=== PATIENT | female | born 1940 | race Hispanic/Latino ===

== ENCOUNTER 2018-06-25 10:50 | Emergency (ER) | payer OTHER ==
--- OUTSIDE RECORDS SUMMARY | 2018-06-25 10:52 | XMS REPORT | Clinical Summary ---
:1940 Author Organization [facility] Address [address] [place] [address] Care Team Providers Name Role Phone Asked, No Pcp Primary Care Provider Unavailable Allergies No Known Allergies Medications Medication Sig Dispensed Refills Start Date End Date Status gabapentin Take 300 mg by 0 07/01/2017 Active (NEURONTIN) 300 mg mouth nightly. capsule acetaminophen Take 325 mg by 0 07/16/2017 Discontinued (TYLENOL) 325 MG mouth every 6 tablet (six) hours as needed for fever. acetaminophen-codei as needed. 0 07/01/2017 07/16/2017 Discontinued ne (TYLENOL WITH CODEINE #3) 300-30 mg per tablet acetaminophen-codei Take 1-2 30 tablet 0 07/13/2017 07/21/2017 ne (TYLENOL WITH tablets by CODEINE #3) 300-30 mouth every 6 mg per tablet (six) hours as needed for moderate pain for up to 8 days. Active Problems Problem Noted Date Osteoarthritis of right knee 03/13/2017 Encounters Date Type Specialty Care Team Description 08/15/2017 Office Visit Orthopedic Surgery Nikita Clemente Presence of right artificial knee joint (Primary Dx); HUEY Tineo Ankylosis of right knee Nigel Leavitt MD 07/16/2017 Surgery Orthopedic Surgery Nigel Leavitt RIGHT KNEE MD Cooper MANIPULATION UNDER ANESTHESIA 07/16/2017 Anesthesia Event Orthopedic Surgery Charito Tolentino APRN 07/16/2017 Hospital Encounter Orthopedic Surgery Nigel Leavitt MD 07/13/2017 Pre-Admit Testing Pre-Admission Nigel Leavitt Appointment Isaias Gamboa MD 07/13/2017 Orders Only Orthopedic Surgery Nikita Clemente PA-C 07/12/2017 Abstract Orthopedic Surgery Nigel Leavitt MD 07/12/2017 Orders Only Orthopedic Surgery Nikita Clemente Knee ankylosis, UHEY Tineo right (Primary Dx) 06/27/2017 Orders Only Orthopedic Surgery Mireya Wilson MA after 06/24/2017 Social History Tobacco Use Types Packs/Day Years Used Date Never Smoker Smokeless Tobacco: Never Used Alcohol Use Drinks/Week oz/Week Comments No Sex Assigned at Date Recorded Not on file Job Start Date Occupation Industry Not on file Not on file Not on file Travel History Travel Start Travel End No recent travel history available. Last Filed Vital Signs Vital Sign Reading Time Taken Blood Pressure 128/71 07/16/2017 10:12 AM [employer] Pulse 73 07/16/2017 10:12 AM [employer] Temperature 36.4 C (97.5 F) 07/16/2017 10:12 AM [employer] Respiratory Rate 16 07/16/2017 10:12 AM [employer] Oxygen Saturation 96% 07/16/2017 10:12 AM [employer] Inhaled Oxygen Concentration - - Weight 78.2 kg (172 lb 4.8 oz) 07/16/2017 6:58 AM [employer] Height 160 cm (5' 3") 07/16/2017 6:58 AM [employer] Body Mass Index 30.52 07/16/2017 6:58 AM [employer] Plan of Treatment Health Maintenance Due Date Last Done Comments SHINGRIX VACCINE (1 of 2) 12/30/1989 ZOSTER VACCINE 1999 PNEUMOCOCCAL POLYSACCHARIDE VACCINE AGE 65 AND OVER 12/30/2004 PNEUMOCOCCAL-13 12/30/2004 INFLUENZA VACCINE 03/06/2018 Implants Implanted Type Area Steel Rigger Device Shelf Model / Identifier Expiration Serial / Lot Date Jacob Ant Stblzd [facility] 10x71 - [id number] IMPLANT Right: [employer] [id number] / Implanted: Qty: 1 on 03/13/2017 by Nigel Leavitt MD DEVICES Knee / [id number] Pura Lyons Ilok Fem-Rt 62.5 - [id number] [id number] IMPLANT Right: [employer] 12/21/2026 [id number] / Implanted: Qty: 1 on 03/13/2017 by Nigel Leavitt MD DEVICES Knee / [id number] Cement Bone R+G 1dose Palacos - [id number] Knee Joint Right: [employer] [id number] / Implanted: Qty: 1 on 03/13/2017 by Nigel Leavitt MD Implants Knee / [id number] Stem Tib Prim Finned 40mm Ascent Maxim - [id number] Knee Joint Right: [employer] 01/07/2027 [id number] / Implanted: Qty: 1 on 03/13/2017 by Nigel Leavitt MD Implants Knee / [id number] Tray Tib Prim 71mm Interlok - [id number] Knee Joint Right: [employer] [id number] / Implanted: Qty: 1 on 03/13/2017 by Nigel Leavitt MD Implants Knee / [id number] Implant Ptlr Vanguard 3 Peg Series A Std 68t25he - [id number] Knee Joint Right : [employer] 01/24/2022 [id number] / Implanted: Qty: 1 on 03/13/2017 by Nigel Leavitt MD Implants Knee / [id number] Procedures Procedure Name Priority Date/Time Associated Diagnosis Comments MANIPULATION, JOINT, 07/16/2017 7:45 AM [employer] INS[employer]OR M24.661 KNEE, WITH INJECTION Case Notes REQ 0745 START Special Needs REQ 0745 START after 06/24/2017 Results Not on fileafter 06/24/2017 Insurance Payer Benefit Plan / Group Subscriber ID Type Phone Address MEDICARE MEDICARE PART A AND B xxxxxxxxxx Medicare [place], [place] ([place]) [place] [address] Advance Directives Patient has advance care planning documents on file. For more information, please contact:Rohit Salas[address] [place] [address]
[2018-06-25] MEDS ORDERED: ONDANSETRON 4 MG/2 ML VIAL ONE (12:14)
--- NOTE | 2018-06-25 12:20 | RAD REPORT ---
EXAM DESCRIPTION: CT - Head Brain Wo Cont - 06/25/2018 12:12 pm CLINICAL HISTORY: DIZZINESS Drowsiness, headache COMPARISON: HEAD BRAIN W O CONTRAST dated 10/05/2013 TECHNIQUE: All CT scans are performed using dose optimization technique as appropriate and may inclu de automated exposure control or mA/KV adjustment according to patient size. FINDINGS: No intracranial hemorrhage, hydrocephalus or extra-axial fluid collection.Mild generalized brain atrophy.No areas of brain edema or evidence of midline shift. The paranasal sinuses and mastoids are clear. The calvarium is intact. IMPRESSION: No acute intracranial abnormality.
[2018-06-25] MEDS ORDERED: NA CHLORIDE 0.9% 1,000 ML ONE (12:28)
[2018-06-25] MEDS ORDERED: MECLIZINE HCL 12.5 MG TAB ONE (12:28)
[2018-06-25 12:30] LABS: Albumin 3.8 g/dL (3.4-5.0); Bilirubin Total 0.7 mg/dL (0.2-1.0); MCH 30.7 pg (27.0-35.0); MPV 11.3 fL (7.6-11.3); Potassium 3.6 mmol/L (3.5-5.1); Protein, Total 7.5 g/dL (6.4-8.2); RBC Red Blood Cell Count 4.72 M/uL (3.86-4.86)
[2018-06-25 13:17] LABS: Urine Appearance CLEAR; Urine Bilirubin NEGATIVE (NEG); Urine Blood TRACE (NEG); Urine Color YELLOW; Urine Glucose NEGATIVE (NEG); Urine Protein NEGATIVE (NEG); Urine Specific Gravity 1.015 (1.005-1.030); Urine Urobilinogen 0.2 mg/dL (0.2-1.0); Urine pH 5.5 (5.0-7.0)
[2018-06-25 13:31] LABS: Urine Microscopic Reflex ORDER UMIC
[2018-06-25 13:57] LABS: Urine Bacteria <20 /HPF (<20); Urine Culture Reflex Order NOT NEEDED; Urine Mucus LIGHT /HPF (NONE SEEN); Urine RBC <5 /HPF (NONE SEEN)
--- NOTE | 2018-06-25 14:27 | EDPHYS ---
Physician Documentation [facility] Name: Cherelle Mccarthy Age: 77 yrs Sex: Female : 1940 Arrival Date: 06/25/2018 Time: 10:52 Bed 13 Private MD: Ulysses Hutchinson H ED Physician Patricia Rodriguez HPI: 06/25 12:05 This 77 yrs old Female presents to ER via Ambulatory with complaints of ma2 Vomiting, Dizziness. 12:05 The patient presents to the emergency department with vertigo, nausea and vomiting when ma2 she stand up or change position that is been constant for the last 2 hours, unable to walk never had this before.. has tinnitus . Onset: The symptoms/episode began/occurred suddenly, 2 hour(s) ago. Possible causes: unknown. The symptoms are aggravated by movement. Associated signs and symptoms: Pertinent positives: nausea, Pertinent negatives: belching, diarrhea. Severity of symptoms: At their worst the symptoms were severe in the emergency department the symptoms are unchanged. Historical: - Allergies: 11:08 No Known Allergies; jl7 - PMHx: 11:08 Osteoporosis; jl7 - Immunization history:: Adult Immunizations unknown. - Social history:: Smoking status: Patient/guardian denies using tobacco, Patient/guardian denies using alcohol, street drugs, The patient lives with family. - Ebola Screening: : No symptoms or risks identified at this time. - Family history:: not pertinent. - Hospitalizations: : No recent hospitalization is reported. ROS: 12:05 Constitutional: Negative for fever, chills, and weight loss, Cardiovascular: Negative ma2 for chest pain, palpitations, and edema, Respiratory: Negative for shortness of breath, cough, wheezing, and pleuritic chest pain, Abdomen/GI: Negative for abdominal pain, nausea, diarrhea, and constipation. 12:05 ENT: Negative for injury or acute deformity, ear pain, Teeth pain 12:05 Neuro: Positive for gait disturbance, tinnitus, Negative for altered mental status, headache, hearing loss, loss of consciousness, seizure activity, syncope, tingling, tremor, visual changes, weakness. 12:05 All other systems are negative. Exam: 12:05 Constitutional: This is a well developed, well nourished patient who is awake, alert, ma2 and in no acute distress. Head/Face: Normocephalic, atraumatic. ENT: Nares patent. No nasal discharge, no septal abnormalities noted. Tympanic membranes are normal and external auditory canals are clear. Oropharynx with no redness, swelling, or masses, exudates, or evidence of obstruction, uvula midline. Mucous membranes moist. Chest/axilla: Normal chest wall appearance and motion. Nontender with no deformity. No lesions are appreciated. Cardiovascular: Regular rate and rhythm with a normal S1 and S2. No gallops, murmurs, or rubs. Normal PMI, no JVD. No pulse deficits. Abdomen/GI: Soft, non-tender, with normal bowel sounds. No distension or tympany. No guarding or rebound. No evidence of tenderness throughout. MS/ Extremity: Pulses equal, no cyanosis. Neurovascular intact. Full, normal range of motion. Neuro: Awake and alert, GCS 15, oriented to person, place, time, and situation. Cranial nerves II-XII grossly intact. Motor strength 5/5 in all extremities. Sensory grossly intact. Cerebellar exam normal. Normal gait. Vital Signs: 11:08 BP 127 / 82; Pulse 62; Resp 16 S; Temp 97.1(O); Pulse Ox 99% on R/A; Weight 77.11 kg jl7 (R); Pain 0/10; 11:35 BP 106 / 66; Pulse 74; Resp 16; Pulse Ox 99% on R/A; Pain 0/10; ls4 12:26 BP 116 / 76; Pulse 64; Resp 16; Pulse Ox 99% on R/A; Pain 0/10; ls4 13:14 BP 107 / 80; Pulse 64; Resp 16; Pulse Ox 97% on R/A; Pain 0/10; ls4 14:06 BP 108 / 70; Pulse 62; Resp 16; Pulse Ox 99% ; ls4 MDM: 11:13 Patient medically screened. ma2 12:05 Differential diagnosis: vertigo. ma2 14:24 Data reviewed: vital signs, nurses notes, symptoms resolved able to walk without ma2 assistance.. likely BPV. Counseling: I had a detailed discussion with the patient and/or guardian regarding: the historical points, exam findings, and any diagnostic results supporting the discharge/admit diagnosis, the presence of at least one elevated blood pressure reading (>120/80) during this emergency department visit, the need for outpatient follow up. Response to treatment: the patient's symptoms have resolved after treatment. 06/25 11:47 Order name: CMP la2 06/25 11:47 Order name: UA la2 06/25 11:47 Order name: CBC w/o diff la2 06/25 12:31 Order name: Comprehensive Metabolic Panel; Complete Time: 13:32 EDMS 06/25 12:40 Order name: CBC without Diff; Complete Time: 13:32 EDMS 06/25 13:32 Order name: Urinalysis EDKY 06/25 11:47 Order name: CT Head Brain wo Cont la2 06/25 12:21 Order name: CT; Complete Time: 13:32 EDMS 06/25 13:57 Order name: Urine Microscopic Only EDMS Administered Medications: 12:10 Drug: Zofran 4 mg Route: IVP; Site: left antecubital; iw 12:40 Follow up: Response: No adverse reaction; Nausea is decreased ls4 12:25 Drug: Meclizine 50 mg Route: PO; ls4 12:42 Follow up: Response: No adverse reaction ls4 12:25 Drug: NS 0.9% 1000 ml Route: IV; Rate: 1 bolus; Site: left antecubital; ls4 14:30 Follow up: IV Status: Completed infusion; IV Intake: 1000ml ls4 Disposition: 06/25/18 14:26 Discharged to Home. Impression: Benign paroxysmal vertigo, right ear. - Condition is Stable. - Discharge Instructions: Vertigo, Vertigo, [id number]. - Prescriptions for Meclizine 25 mg Oral Tablet - take 1 tablet by ORAL route every 8 hours As needed; 30 tablet. Prednisone 20 mg Oral Tablet - take 1 tablet by ORAL route once daily for 5 days; 5 tablet. Zofran 4 mg Oral Tablet - take 1 tablet by ORAL route every 12 hours As needed; 6 tablet. Bactrim DS 800- 160 mg Oral Tablet - take 1 tablet by ORAL route every 12 hours for 10 days; 20 tablet. - Medication Reconciliation Form, Thank You Letter, Antibiotic Education, Prescription Opioid Use form. - Follow up: Private Physician; When: Tomorrow; Reason: Continuance of care. Signatures: Dispatcher [employer] EDMS Mili Hines RN RN Mariajose Alcaraz RN RN jl7 Patricia Rodriguez MD MD ma2 María Elena Collins RN RN ls4 Corrections: (The following items were deleted from the chart) 14:41 14:26 06/25/2018 14:26 Discharged to Home. Impression: Benign paroxysmal vertigo, right ls4 ear. Condition is Stable. Forms are Medication Reconciliation Form, Thank You Letter, Antibiotic Education, Prescription Opioid Use. Follow up: Private Physician; When: Tomorrow; Reason: Continuance of care. ma2
--- NOTE | 2018-06-25 14:27 | ER ---
Nurse's Notes [facility] Name: Cherelle Mccarthy Age: 77 yrs Sex: Female : 1940 Arrival Date: 06/25/2018 Time: 10:52 Bed 13 Private MD: Ulysses Hutchinson H Diagnosis: Benign paroxysmal vertigo, right ear Presentation: 06/25 11:02 Presenting complaint: Patient states: [employer] Steffi [id number] pt Reports woke up, jl7 stood up and almost fell down and threw up 3 times at 0700 this morning, when I stand up I feel like I'm falling to one side. Denies nausea at this time. Went to bed at 2200 and felt normal. Transition of care: patient was not received from another setting of care. Onset of symptoms was June 25, 2018 at 07:00. Risk Assessment: Do you want to hurt yourself or someone else? Patient reports no desire to harm self or others. Initial Sepsis Screen: Does the patient meet any 2 criteria? No. Patient's initial sepsis screen is negative. Does the patient have a suspected source of infection? No. Patient's initial sepsis screen is negative. Care prior to arrival: None. 11:02 Method Of Arrival: Ambulatory [facility] 11:02 Acuity: JERRY 3 jl7 Triage Assessment: 11:35 General: Appears in no apparent distress. Behavior is calm, cooperative. Pain: Denies ls4 pain. Cardiovascular: Reports lightheadedness, Denies chest pain, diaphoresis, fatigue, nausea, palpitations, shortness of breath, syncope, vomiting. GI: No deficits noted. No signs and/or symptoms were reported involving the gastrointestinal system. GI: Reports tolerance of food, denies nausea vomitting diarrhea. Musculoskeletal: No deficits noted. Historical: - Allergies: 11:08 No Known Allergies; jl7 - PMHx: 11:08 Osteoporosis; jl7 - Immunization history:: Adult Immunizations unknown. - Social history:: Smoking status: Patient/guardian denies using tobacco, Patient/guardian denies using alcohol, street drugs, The patient lives with family. - Ebola Screening: : No symptoms or risks identified at this time. - Family history:: not pertinent. - Hospitalizations: : No recent hospitalization is reported. Screenin:16 Abuse screen: Denies threats or abuse. Nutritional screening: No deficits noted. ls4 Tuberculosis screening: No symptoms or risk factors identified. Fall Risk None identified. Assessment: 11:15 General: Appears in no apparent distress. comfortable, Behavior is calm, cooperative. ls4 Pain: Denies pain. Neuro: No deficits noted. Reports dizziness, this morning, pt denies dizziness now. Cardiovascular: Denies chest pain, diaphoresis, fatigue, nausea, palpitations, shortness of breath. Respiratory: Airway is patent Respiratory effort is even, unlabored, Respiratory pattern is regular. GI: Abdomen is round non-distended, Bowel sounds present X 4 quads. : No deficits noted. Musculoskeletal: No deficits noted. 12:10 Reassessment: systems test technician called to report pt vomiting in CT, pt medicated with 4 mg Zofran iw IVP per OCT. 12:16 Reassessment: Patient and/or family updated on plan of care and expected duration. Pain ls4 level reassessed. pt feeling better after zofran given. pt returned from ct scan. 13:16 Reassessment: Patient appears in no apparent distress at this time. Patient and/or ls4 family updated on plan of care and expected duration. Pain level reassessed. 14:06 Reassessment: Patient appears in no apparent distress at this time. Patient and/or ls4 family updated on plan of care and expected duration. Pain level reassessed. Patient states feeling better. Patient states symptoms have improved. Vital Signs: 11:08 BP 127 / 82; Pulse 62; Resp 16 S; Temp 97.1(O); Pulse Ox 99% on R/A; Weight 77.11 kg jl7 (R); Pain 0/10; 11:35 BP 106 / 66; Pulse 74; Resp 16; Pulse Ox 99% on R/A; Pain 0/10; ls4 12:26 BP 116 / 76; Pulse 64; Resp 16; Pulse Ox 99% on R/A; Pain 0/10; ls4 13:14 BP 107 / 80; Pulse 64; Resp 16; Pulse Ox 97% on R/A; Pain 0/10; ls4 14:06 BP 108 / 70; Pulse 62; Resp 16; Pulse Ox 99% ; ls4 ED Course: 10:52 Patient arrived in ED. mr 10:53 Ulysses Hutchinson DO is Private Physician. mr 11:07 Triage completed. jl7 11:08 Arm band placed on right wrist. jl7 11:10 Patient has correct armband on for positive identification. Side rails up X 1. ls4 11:13 Patricia Rodriguez MD is Attending Physician. ma2 11:22 Inserted saline lock: 22 gauge in left antecubital area, using aseptic technique. Blood gm collected. 11:26 María Elena Collins, RN is Primary Nurse. ls4 11:58 CT completed. Patient tolerated procedure well. Patient moved to CT via stretcher. Patient moved back from CT. 12:25 CMP Sent. ls4 12:26 UA Sent. ls4 12:26 CBC w/o diff Sent. ls4 13:17 No provider procedures requiring assistance completed. ls4 14:08 IV discontinued, intact, bleeding controlled, No redness/swelling at site. Pressure gm dressing applied. Administered Medications: 12:10 Drug: Zofran 4 mg Route: IVP; Site: left antecubital; iw 12:40 Follow up: Response: No adverse reaction; Nausea is decreased ls4 12:25 Drug: Meclizine 50 mg Route: PO; ls4 12:42 Follow up: Response: No adverse reaction ls4 12:25 Drug: NS 0.9% 1000 ml Route: IV; Rate: 1 bolus; Site: left antecubital; ls4 14:30 Follow up: IV Status: Completed infusion; IV Intake: 1000ml ls4 Intake: 14:30 IV: 1000ml; Total: 1000ml. ls4 Outcome: 14:26 Discharge ordered by . ma2 14:39 Discharged to home ambulatory, with family. ls4 14:39 Condition: stable 14:39 Discharge instructions given to patient, family, Instructed on discharge instructions, follow up and referral plans. no drinking with medication, no driving heavy equipment, medication usage, safety practices, Demonstrated understanding of instructions, follow-up care, medications. 14:41 Patient left the ED. ls4 Signatures: Sabrina Ingram Susan sj Mili Hines, Mariajose Granger RN, RN RN jl7 Patricia Rodriguez MD MD ma2 Stewart, Lisa, GISELE RN ls4 Suzette Poole Corrections: (The following items were deleted from the chart) 11:11 11:02 Presenting complaint: Patient states: [employer] Steffi [id number] pt Reports stood jl7 up and almost fell down and threw up 3 times at 0700 this morning, when I stand up I feel like I'm falling to one side. Denies nausea at this time. jl7
[2018-06-25 14:58] VITALS: TEMP 97.1
[2018-06-25 15:04] VITALS: BP 108/70; O2SAT 99
== END 2018-06-25 14:41 | disposition home or self-care (01) ==
LOC: ER 10:50
DX: H81.11 Benign paroxysmal vertigo, right ear (principal)
CPT/HCPCS: 36415; 70450; 80053; 85027; 96361; 96374; 99284; J2405; J7030; 81003; 81015

== ENCOUNTER 2021-11-06 13:02 | Emergency (ER) | payer OTHER ==
--- OUTSIDE RECORDS SUMMARY | 2021-11-06 13:05 | XMS REPORT | Continuity of Care Document ---
:1940 Author Organization [facility] t Address [address] [place] [address] Care Team Providers Name Role Phone Humprhey GARCIA, Y Primary Care Physician Chen Birmingham MD Attending Clinician Dion Ladd MD Attending Clinician Payers Payer Name Policy Type Policy Number Effective Date Expiration Date S ource Problems Condition Condition Condition Status Onset Resolution Last Treating Co mments Source Name Details Category Date Date Treatment Clinician Date Hypoglycem Hypoglycem Disease Active 2020-08 U nivers ia ia 1-13 ity of 00:00: [place] 00 Medical Branch Chronic Chronic Disease Active Univers pain of pain of 1-14 [place] of [place] Chronic Chronic Disease Active Univers pain of pain of 1-14 [place] of [place] knees [place] Dementia Dementia Disease Active Unive rs without without 1-14 ity of behavioral behavioral 00:[place] disturbanc disturbanc 00 Me dical e, e, Branch unspecifie unspecifie d dementia d dementia type type 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 1-14 it y of ce, ce, 00:00: [place] unspecifie unspecifie 00 Me dical d type d type Branch Osteoporos Osteoporos Disease Active U nivers is, is, 1-14 ity of postmenopa postmenopa [place] usal usal 00 Medical Branch Insomnia, Insomnia, Disease Active Uni vers unspecifie unspecifie 1-14 it y of d type d type 00:00: [place] 00 Medical Branch Depression Depression Disease Active U nivers , , 1-14 ity of unspecifie unspecifie [place] d d 00 Medical depression depression Br anch type type Low serum Low serum Disease Active Uni vers progestero progestero 1-14 it y of ne ne 00:00: [place] [facility] History of History of Disease Active U nivers bilateral bilateral 1-14 ity of knee knee 00:00: [place] replacemen replacemen 00 Me dical t t Branch Osteoarthr Osteoarthr Disease Active U nivers itis of itis of 8-08 ity of right knee right [place] [facility] [place] Routine Routine Disease Active Overview: Univ ers general general - Formattin ity o f medical medical 00:00: g of this [place] examinatio examinatio 00 note Me dical n at a n at a might be [facility] different care care from the facility facility original. Annual c/s exam Varicose Varicose Disease Active Overview: Un lakisha veins of veins of 04 Formattin ity of lower lower 00:00: g of this [place] extremitie extremitie 00 note Me dical s with s with might be [place] other other different complicati complicati from the ons ons original. Lower leg Allergies, Adverse Reactions, Alerts Allergy Allergy Status Severity Reaction(s) Onset Inactive Treating Comm ents Source Name Type Date Date Clinician NO KNOWN Drug Active Univers ALLERGIE Class ity of S [facility] Social History Social Habit Start Date Stop Date Quantity Comments Source Exposure to Not sure [facility] SARS-CoV-2 (event) Medica l Branch Tobacco use and 2020-08-19 2020-08-19 Never used [facility] exposure 00:00:00 00:00:00 Medical Branch Sex [birth year] At [birth year] [facility] [place] 00:00:00 00:00:00 Medical Branch Smoking Status Start Date Stop Date Source Never smoker [facility] Medical Branch Medications Ordered Filled Start Stop Current Ordering Indication Dosage Frequency Signature Comments Components Source Medication Medication Date Date Medication? Clinician (SIG) Name Name ondansetron 2020-08 Yes [id number] 4mg Take 1 Univers (ZOFRAN 1-20 tablet by ity of ODT) 4 mg 00:00: mouth [place] disintegrat 00 every 8 Medic al ing tablet (eight) Branch hours as needed for Nausea and Vomiting (N/V). traZODone 2020-08 Yes [id number] 100mg Take 1 Univers 100 mg 1-18 105 tablet by ity of tablet 00:00: mouth at [place] [address] bedtime. Medical Branch SERTraline 2020-08- No [id number] 50mg Take 0.5 Univers 100 mg 1-18 11-24 tablets by ity of tablet 00:00: 00:00 mouth [place] 00 :00 daily. Medical Branch Donepezil Yes [id number] 23mg Take 23 mg Univers (ARICEPT) 9-10 by mouth ity of 23 mg Tab 00:00: daily. [place] 00 Medical Branch oxybutynin Yes [id number] 15mg Take 1 Univers 15 mg 24 hr 8-02 tablet by ity of tablet 00:00: mouth [place] 00 daily. Medical Branch raloxifene Yes 60mg Take 1 Unive rs 60 mg 8-02 tablet by ity of tablet 00:00: mouth [place] 00 daily. Medical Branch CELECOXIB 2020- No [id number] TAKE 1 Univers 200 mg 02-11 11-30 CAPSULE BY ity of capsule 00:00: 00:00 MOUTH [place] 00 :00 EVERY DAY Medical Branch PROGESTERON Yes [id number] TAKE 1 Univers E 100 mg 5-24 CAPSULE BY ity o f capsule 00:00: MOUTH [place] 00 EVERY DAY Medical Branch donepeziL Yes 10mg Take 1 Univer s 10 mg 3-12 tablet by ity of tablet 00:00: mouth at [place] [address] bedtime. Medical Branch traZODone Yes Primary 50mg Take 1 Uni vers 50 mg 3-12 insomnia tablet by ity o f tablet 00:00: mouth at [place] 00 bedtime. Medical Branch ZOLPIDEM 5 Yes Insomnia TAKE 1 U nivers mg tablet 2-26 due to TABLET BY ity of 00:00: other MOUTH [place] 00 mental EVERY DAY Medical disorder AT BEDTIME Branc h NEEDED FOR INSOMNIA raloxifene Yes Osteoporosi 60mg Take 1 Univers 60 mg 1-14 s, tablet by ity of tablet 00:00: post[place]opau mouth [place] 00 clem daily. Medical Branch progesteron Yes Low serum 100mg Take 1 Univers e 100 mg 1-14 progesteron capsule by ity of capsule 00:00: e mouth [place] 00 daily. Medical Branch celecoxib Yes Chronic 200mg Take 1 Un lakisha 200 mg 1-14 pain of capsule by ity of capsule 00:00: both knees mouth [place] 00 daily. Medical Branch SERTraline Yes Depression, 50mg Take 0.5 Univers 100 mg 1-14 unspecified tablets by ity of tablet 00:00: [place] 00 type daily. Medical [place] Immunizations Ordered Filled Immunization Date Status Comments [facility] e Immunization Name Name Influenza Virus 2021-06-29 Completed Universit y of Vaccine,quad 00:00:00 [place] Medica l Im,preserve Free Branch 65+ Vital Signs Vital Name Observation Time Observation Value Comments Source Systolic blood 2021-06-29 19:50:00 108 mm[facility]Hg[facility] Diastolic blood 2021-06-29 19:50:00 67 mm[Hg] [facility] Heart rate 2021-06-29 19:50:00 61 /min [facility] Body temperature 2021-06-29 19:49:00 36.33 [facility] Respiratory rate 2021-06-29 19:49:00 20 /min [facility] Body height 2021-06-29 19:49:00 162.6 cm [facility] Body weight 2021-06-29 19:49:00 55.974 kg [facility] BMI 2021-06-29 19:49:00 21.18 kg/m2 [facility] Oxygen saturation in 2021-06-29 19:49:00 95 /min r/a University of Arterial blood by [facility] Pulse oximetry Branch Procedures Procedure Date / Time Performed Performing Clinician Sourc e FLU 2021-06-29 19:52:19 Zaida [place] [facility] [place] VACC([id number]),65+YR, Medical B ranch 0.5 ML,IM,ADJUVANTED,QUAD( FLUAD) POCT HEMOGLOBIN A1C 2021-06-29 00:00:00 Zaida Birmingham [facility] [place] TEST Medical Branch Plan of Care Planned Activity Planned Date Details Comments Source Future Scheduled 2021-08-19 DTaP,Tdap,and Td Postponed from Unive rsity of Test 00:00:00 Vaccines (1 - Tdap) 12/30/1959 [facility] dical [code = (Alternative Branch DTaP,Tdap,and Td Guidelines) Vaccines (1 - Tdap)] Future Scheduled 2021-08-19 Depression screening Uni versity of Test 00:00:00 (procedure) [code = [facility] dical [id number]] Branch Future Scheduled 2021-08-19 Zoster Recombinant Postponed from Uni versity of Test 00:00:00 Vaccine (SHINGRIX) 12/30/1989 [place] Med ical (1 of 2) [code = (Insurance / Branch Zoster Recombinant Financial) Vaccine (SHINGRIX) (1 of 2)] Future Scheduled 2021-04-06 INFLUENZA VACCINE Univer sity of Test 00:00:00 (Season Ended) [code [facility] edical = INFLUENZA VACCINE Branch (Season Ended)] Future Scheduled 2004-12-30 Medicare Annual Universi ty of Test 00:00:00 Wellness Visit [facility] (procedure) [code = Branch [id number]] Future Scheduled 2004-12-30 Screening for University of Test 00:00:00 osteoporosis [place] [facility] (procedure) [code = Branch [id number]] Future Scheduled 2004-12-30 PNEUMOCOCCAL University of Test 00:00:00 VACCINES 65+ (1 of 1 [place] edical - PPSV23) [code = Branch PNEUMOCOCCAL VACCINES 65+ (1 of 1 - PPSV23)] Future Scheduled 1956 SARS-CoV-2 University of Test 00:00:00 (COVID-19) Vaccine [place] Med ical (1) [code = Branch SARS-CoV-2 (COVID-19) Vaccine (1)] Encounters Start End Encounter Admission Attending Care Care Encounter Source Date/Time Date/Time Type Type Clinicians Facility Department ID 2021-06-29 2021-06-29 Office [facility] [id number] Univers 14:00:00 14:54:02 Visit Zaida PRIMARY [id number] it y of [facility] [id number] [place] [id number] Mt dical 7 Branch 2021-06-29 2021-06-29 Outpatient R [facility] [id number] Univers 14:00:00 14:54:02 ZAIDA itkathleen [facility] Results Test Description Test Time Test Comments Results Result Comments Source POCT HEMOGLOBIN A1C TEST 2021-06-29 20:25:00 Test Item Value Reference Range Interpretation Comme nts POCT HBA1C (test code = 4548-4) 5.3 % 4-6 [facility]
--- NOTE | 2021-11-06 14:24 | RAD REPORT ---
EXAM DESCRIPTION: RAD - Wrist Left 3 View - 11/06/2021 2:07 pm CLINICAL HISTORY: Pain;Swelling Pain COMPARISON: No comparisons FINDINGS: Mildly impacted intra-articular fracture of the distal radius is present. Small ulnar sty loid avulsion also present. Moderate soft tissue swelling.
[2021-11-06] MEDS ORDERED: TRAMADOL HCL 50 MG TAB ONE (14:43)
[2021-11-06] MEDS ORDERED: MORPHINE 2 MG/ML SYR ONE (15:14)
--- NOTE | 2021-11-06 15:31 | ER ---
Nurse's Notes [facility] [place] Name: Cherelle Mccarthy Age: 80 yrs Sex: Female : 1940 Arrival Date: 11/06/2021 Time: 13:04 Bed 5 Private MD: Diagnosis: Left ulnar styloid avulsion fracture;Mildly impacted intra-articular fracture of ;left distal radius;Fall on same level, unspecified Presentation: 11/06 13:17 Chief complaint: Patient's son or daughter states: She tripped and fell, obvious jl7 deformity noted to left wrist. Coronavirus screen: At this time, the client does not indicate any symptoms associated with coronavirus-19. Ebola Screen: No symptoms or risks identified at this time. Initial Sepsis Screen: Does the patient meet any 2 criteria? No. Patient's initial sepsis screen is negative. Does the patient have a suspected source of infection? No. Patient's initial sepsis screen is negative. Risk Assessment: Do you want to hurt yourself or someone else? Patient reports no desire to harm self or others. Onset of symptoms was November 06, 2021. 13:17 Method Of Arrival: Wheelchair jl7 13:17 Acuity: JERRY 3 jl7 13:30 Care prior to arrival: None. Mechanism of Injury: Fall. Trauma event details: Injury cortez occurred: November 06, 2021. Triage Assessment: 13:18 General: Appears in no apparent distress. uncomfortable, Behavior is calm, cooperative, jl7 appropriate for age. Pain: Complains of pain in left wrist. 13:26 Musculoskeletal: Reports pain in dorsal aspect of left forearm, left wrist and palmar cortez aspect of left forearm Pain is 10 out of 10 on a pain scale. Trauma Activation: Not Applicable Physician: ED Physician; Name: ; Notified At: ; Arrived At: Physician: General Surgeon; Name: ; Notified At: ; Arrived At: Physician: Radiology; Name: ; Notified At: ; Arrived At: Physician: Respiratory; Name: ; Notified At: ; Arrived At: Physician: Lab; Name: ; Notified At: ; Arrived At: Historical: - Allergies: 13:18 No Known Allergies; jl7 - PMHx: 13:18 Osteoporosis; varicose veins; Dementia; jl7 - Immunization history:: Client reports receiving the 2nd dose of the Covid vaccine. - Social history:: Smoking status: Patient denies any tobacco usage or history of. - Immunization history: Last tetanus immunization:. Screenin:29 Abuse screen: Denies threats or abuse. Denies injuries from another. Nutritional cortez screening: No deficits noted. Tuberculosis screening: No symptoms or risk factors identified. Fall Risk Mental Status- Overestimates/Forgets Limitations (15 pts.). Primary Survey: 13:27 NO uncontrolled hemorrhage observed. A: Airway: patent. Breathing/Chest: Respiratory cortez pattern: regular. Circulation: Cardiac rhythm: Pulses: palpable right radial artery. Disability Alert. Exposure/Environment: A warming method has been applied: A warm blanket has been provided to the patient. Reassessment Breathing/Chest. Assessment: 13:46 General: Appears in no apparent distress. Behavior is calm, cooperative. Pain: cortez Complains of pain in dorsal aspect of left forearm and left wrist. Musculoskeletal: Reports pain in dorsal aspect of left forearm and left wrist. Vital Signs: 13:17 BP 108 / 65; Pulse 89; Resp 17; Temp 97.9; Pulse Ox 100% ; Weight 63.5 kg; jl7 [place] Coma Score: 13:27 Eye Response: spontaneous(4). Verbal Response: confused(4). Motor Response: obeys cortez commands(6). Total: 14. Trauma Score (Adult): 13:27 Eye Response: spontaneous(1); Verbal Response: confused(1); Motor Response: obeys cortez commands(2); Systolic BP: > 89 mm Hg(4); Respiratory Rate: 10 to 29 per min(4); Vanessa Score: 14; Trauma Score: 12 ED Course: 13:04 Patient arrived in ED. as 13:08 Brando Shaw NP is PHCP. pm1 13:08 Fabio Muller MD is Attending Physician. pm1 13:18 Triage completed. jl7 13:18 Arm band placed on right wrist. jl7 13:26 Mellisa Brownlee, RN is Primary Nurse. cortez 13:27 Patient has correct armband on for positive identification. cortez 13:27 Patient maintains SpO2 saturation greater than 95% on room air. cortez 13:29 No provider procedures requiring assistance completed. cortez 14:08 Wrist Left (3 View) XRAY In Process Unspecified. EDMS 15:27 Moncho Harris MD is Referral Physician. pm1 16:05 Patient did not have IV access during this emergency room visit. cortez Administered Medications: 15:19 Drug: traMADol 50 mg Route: PO; cortez 15:19 Follow up: Response: No adverse reaction cortez 15:19 Drug: morphine 1 mg Route: IM; Site: right gluteus; cortez 15:19 Follow up: Response: No adverse reaction cortez Intake: 13:27 PO: 0ml; Total: 0ml. cortez Outcome: 15:31 Discharge ordered by . pm1 16:04 Discharged to home cortez 16:04 Condition: good 16:04 Discharge instructions given to family, Prescriptions given X 1. 16:05 Patient left the ED. cortez Signatures: Dispatcher [employer] EDMS Sherly White Patrick, NP PORCELAIN ENAMELING SUPERVISOR pm1 Mariajose Mendoza RN RN jl7 Mellisa Brownlee RN RN cortez
--- NOTE | 2021-11-06 15:32 | EDPHYS ---
Physician Documentation [facility] Name: Cherelle Mccarthy Age: 80 yrs Sex: Female : 1940 Arrival Date: 11/06/2021 Time: 13:04 Bed 5 Private MD: ED Physician Fabio Muller HPI: 11/06 13:18 This 80 yrs old Female presents to ER via Wheelchair with complaints of Fall pm1 Injury, Wrist Injury. 13:18 Details of fall: The patient fell from an upright position, while standing. Onset: The pm1 symptoms/episode began/occurred today. Associated injuries: The patient sustained left wrist. Severity of symptoms: in the emergency department the symptoms are unchanged. The patient has not experienced similar symptoms in the past. The patient has not recently seen a physician. Patient was standing up from the toilet and she slipped on fluid on the floor. No headache, head injury, neck pain, LOC. Presenting with pain to left wrist. Historical: - Allergies: 13:18 No Known Allergies; jl7 - PMHx: 13:18 Osteoporosis; varicose veins; Dementia; jl7 - Immunization history:: Client reports receiving the 2nd dose of the Covid vaccine. - Social history:: Smoking status: Patient denies any tobacco usage or history of. - Immunization history: Last tetanus immunization:. ROS: 13:18 Constitutional: Negative for fever, chills, and weight loss, Cardiovascular: Negative pm1 for chest pain, palpitations, and edema, Respiratory: Negative for shortness of breath, cough, wheezing, and pleuritic chest pain, Abdomen/GI: Negative for abdominal pain, nausea, vomiting, diarrhea, and constipation. 13:18 Skin: Negative for injury, rash, and discoloration, Neuro: Negative for headache, weakness, numbness, tingling, and seizure. 13:18 MS/extremity: Positive for pain, of the left wrist, Negative for decreased range of motion, deformity. 13:18 All other systems are negative. Exam: 13:18 Constitutional: This is a well developed, well nourished patient who is awake, alert, pm1 and in no acute distress. Head/Face: Normocephalic, atraumatic. 13:18 Abdomen/GI: Soft, non-tender, with normal bowel sounds. No distension or tympany. No guarding or rebound. No evidence of tenderness throughout. Skin: Warm, dry with normal turgor. Normal color with no rashes, no lesions, and no evidence of cellulitis. 13:18 Eyes: Exam is negative for acute changes, Pupils: no acute changes, Extraocular movements: no acute changes. 13:18 ENT: Exam is negative for acute changes, Mouth: no acute changes, Lips: normal, moist, Oral mucosa: normal, pink and intact, moist. 13:18 Neck: Exam negative for acute changes, C-spine: appears grossly normal, vertebral tenderness, is not appreciated. 13:18 Cardiovascular: Exam negative for acute changes, Rate: normal, Rhythm: regular, Pulses: no pulse deficits are appreciated. 13:18 Respiratory: Exam negative for acute changes, respiratory distress, shortness of breath, Breath sounds: are clear throughout. 13:18 Musculoskeletal/extremity: Extremities: grossly normal except: noted in the left wrist: pain, swelling, tenderness, There is no evidence of decreased ROM, deformity. 13:18 Neuro: Exam negative for acute changes, Orientation: is normal, Mentation: is normal, Motor: is normal, moves all fours. Vital Signs: 13:17 BP 108 / 65; Pulse 89; Resp 17; Temp 97.9; Pulse Ox 100% ; Weight 63.5 kg; jl7 Vanessa Coma Score: 13:27 Eye Response: spontaneous(4). Verbal Response: confused(4). Motor Response: obeys cortez commands(6). Total: 14. Trauma Score (Adult): 13:27 Eye Response: spontaneous(1); Verbal Response: confused(1); Motor Response: obeys cortez commands(2); Systolic BP: > 89 mm Hg(4); Respiratory Rate: 10 to 29 per min(4); [place] Score: 14; Trauma Score: 12 Procedures: 15:26 Splinting: Splint applied to left wrist using Orthoglass splint, applied by nurse. pm1 Examined by me, post splint application: neurovascular intact, 2+ distal pulses palpable, brisk capillary refill noted, Patient tolerated well. MDM: 13:14 Patient medically screened. pm1 15:25 Data reviewed: vital signs. Data interpreted: Pulse oximetry: on room air is 100 %. pm1 Interpretation: normal. Counseling: I had a detailed discussion with the patient and/or guardian regarding: the historical points, exam findings, and any diagnostic results supporting the discharge/admit diagnosis, radiology results, the need for outpatient follow up, a orthopedic surgeon, to return to the emergency department if symptoms worsen or persist or if there are any questions or concerns that arise at home. 11/06 13:18 Order name: Wrist Left (3 View) XRAY; Complete Time: 14:32 pm1 11/06 14:36 Order name: Splint - Sugar Tong - Forearm; Complete Time: 15:19 pm1 11/06 15:32 Order name: Sling pm1 Administered Medications: 15:19 Drug: traMADol 50 mg Route: PO; cortez 15:19 Follow up: Response: No adverse reaction cortez 15:19 Drug: morphine 1 mg Route: IM; Site: right gluteus; cortez 15:19 Follow up: Response: No adverse reaction cortez Disposition: 16:08 Co-signature as Attending Physician, Fabio Muller MD. rn Disposition Summary: 11/06/21 15:31 Discharge Ordered Location: Home pm1 Problem: new pm1 Symptoms: have improved pm1 Condition: Stable pm1 Diagnosis - Left ulnar styloid avulsion fracture pm1 - Mildly impacted intra-articular fracture of ;left distal radius pm1 - Fall on same level, unspecified pm1 Followup: pm1 - With: Emergency Department - When: As needed - Reason: Worsening of condition Followup: pm1 - With: Private Physician - When: 2 - 3 days - Reason: Recheck today's complaints, Continuance of care, Re-evaluation by your physician Followup: pm1 - With: Moncho Harris MD - When: 2 - 3 days - Reason: Recheck today's complaints, Continuance of care, Re-evaluation by your physician Discharge Instructions: - Discharge Summary Sheet pm1 - Cast or Splint Care, Adult pm1 - How to Use a Sling pm1 Forms: - Medication Reconciliation Form pm1 - Thank You Letter pm1 - Antibiotic Education pm1 - Prescription Opioid Use pm1 Prescriptions: - Tramadol 50 mg Oral Tablet - take 1 tablet by ORAL route every 8 hours as needed; 12 tablet; Refills: 0, pm1 Product Selection Permitted Signatures: Dispatcher [employer] EDFabio Xie MD MD rn Marinas, Patrick, STEAM TENDER STEAM TENDER pm1 Mendoza, Jahala, RN RN jl7 Au-Stager, Mellisa, RN RN cortez
[2021-11-06 16:33] VITALS: BP 108/65; TEMP 97.9; O2SAT 100
== END 2021-11-06 16:05 | disposition home or self-care (01) ==
LOC: ER 13:02
PROC: 2W3DX1Z Immobilization of Left Lower Arm using Splint (ICD-10-PCS; principal; 2021-11-06)
DX: S52.612A Displaced fracture of left ulna styloid process, initial encounter for closed fracture (principal); S52.572A Other intraarticular fracture of lower end of left radius, initial encounter for closed fracture; W01.0XXA Fall on same level from slipping, tripping and stumbling without subsequent striking against object, initial encounter; Y93.89 Activity, other specified; Y92.012 Bathroom of single-family (private) house as the place of occurrence of the external cause; F03.90 Unspecified dementia, unspecified severity, without behavioral disturbance, psychotic disturbance, mood disturbance, and anxiety
CPT/HCPCS: 73110; 96372; 99284; 29125; J2270

== ENCOUNTER 2022-09-07 13:03 | Emergency (ER) | payer OTHER ==
--- OUTSIDE RECORDS SUMMARY | 2022-09-07 13:05 | XMS REPORT | Continuity of Care Document ---
:[address] [facility] t Address [address] [place] [address] Care Team Providers Name Role Phone Jack Yin MD Primary Care Physician Ulysses Hutchinson Attending Clinician Unavailable Doctor Unassigned, [place] Attending Clinician Unavailable ZAIDA BIRMINGHAM Attending Clinician Unavailable Jack Yin MD Attending Clinician [facility]al[facility] Attending Clinician JACK YIN Attending Clinician Unavailable NATANAEL PATRICIA S Attending Clinician Unavailable Miroslava BHATIA Natanael S Attending Clinician Daniella Lopez RN Attending Clinician Unavailable LIA LOCKETT Attending Clinician Unavailable Miriam Cordero Attending Clinician Lia Lockett DO Attending Clinician LEONARD LADD Attending Clinician Unavailable LEONARD LADD Attending Clinician Unavailable Leonard Ladd MD Attending Clinician LIA LOCKETT Admitting Clinician Unavailable Lia Lockett DO Admitting Clinician Payers Payer Name Policy Type Policy Number Effective Date Expiration Date S ource Problems Condition Condition Condition Status Onset Resolution Last Treating Co mments Source Name Details Category Date Date Treatment Clinician Date Hypoglycem Hypoglycem Disease Active 2020-08 U nivers ia ia 1-13 ity of 00:00: [place] [facility] Chronic Chronic Disease Active Univers pain of pain of 1-14 [place]y of both knees [place] knees [place] [facility] Dementia Dementia Disease Active Unive [...] postmenopa postmenopa [place] [facility] [facility] [facility] Insomnia, Insomnia, Disease Active Uni vers unspecifie unspecifie 1-14 it y of d type d type 00:00: [place] [facility] Depression Depression Disease Active U nivdaniela , , 1-14 ity of unspecifie unspecifie [place] 00 Medical depression depression Br anch type type Low serum Low serum Disease Active Uni vers progestero progestero 1-14 it y of ne ne 00:00: [place] [facility] History of History of Disease Active U nivers bilateral bilateral 1-14 ity of knee knee 00:00: [place] replacemen replacemen 00 Me dical t t Branch Chronic Chronic Disease Active Univers pain of pain of 1-14 ity of both knees both knees 00:[place] [facility] Osteoarthr Osteoarthr Disease Active M ethodi itis of itis of [address] right knee right knee 00:00: [facility] 00 l Routine Routine Disease Active Overview: Univ ers general general 7-04 Formattin ity o f medical medical 00:00: g of this [place] examinatio examinatio 00 note Me dical n at a n at a might be [facility] different care care from the facility facility original. Annual c/s exam Varicose Varicose Disease Active Overview: Un lakisha veins of veins of 7-04 Formattin ity of lower lower 00:00: g of this [place] extremitie extremitie 00 note Me dical s with s with might be Branch other other different complicati complicati from the ons ons original. Lower leg Allergies, Adverse Reactions, Alerts Allergy Allergy Status Severity Reaction(s) Onset Inactive Treating Comm ents Source Name Type Date Date Clinician NO KNOWN Drug Active Univers ALLERGIE Class ity of S [facility] Social History Social Habit Start Date Stop Date Quantity Comments Source Exposure to Not sure [facility] SARS-CoV-2 [facility] (event) Branch Tobacco use and 2020-08-19 2020-08-19 Never used Universit y of exposure 00:00:00 00:00:00 [facility] Alcohol intake 2017-09-18 2017-09-18 [facility] 00:00:00 00:00:00 non-drinker of alcohol (finding) Sex Assigned At [birth year] [facility] 00:00:00 00:00:00 Smoking Status Start Date Stop Date Source Never smoker [facility] Medications Ordered Filled Start Stop Current Ordering Indication Dosage Frequency Signature Comments Components Source Medication Medication Date Date Medication? Clinician (SIG) Name Name ondansetron 2020-08 Yes [id number] 4mg Take 1 Univers (ZOFRAN 1-20 tablet by ity of ODT) 4 mg 00:00: mouth [place] disintegrat 00 every 8 Medic al ing tablet (eight) Branch hours as needed for Nausea and Vomiting (N/V). ondansetron 2020-08 Yes [id number] 4mg Take 1 Univers (ZOFRAN 1-20 tablet by ity of ODT) 4 mg 00:00: mouth [place] disintegrat 00 every 8 Medic al ing tablet (eight) Branch hours as needed for Nausea and Vomiting (N/V). traZODone 2020-08 Yes [id number] 100mg Take 1 Univers 100 mg 1-18 105 tablet by ity of tablet 00:00: mouth at [place] 00 bedtime. Medical Branch traZODone 2020-08 Yes [id number] 100mg Take 1 Univers 100 mg 1-18 105 tablet by ity of tablet 00:00: mouth at [place] 00 bedtime. Medical Branch SERTraline 2020-08- No [id number] 50mg Take 0.5 Univers 100 mg 1-18 11-24 tablets by ity of tablet 00:00: 00:00 mouth [place] 00 :00 daily. Medical Branch Donepezil 0 Yes [id number] 23mg Take 23 mg Univers (ARICEPT) 9-10 by mouth ity of 23 mg Tab 00:00: daily. Medical Branch Donepezil 0 Yes [id number] 23mg Take 23 mg Univers (ARICEPT) 9-10 by mouth ity of 23 mg Tab 00:00: daily. Medical Branch oxybutynin 0 Yes [id number] 15mg Take 1 Univers 15 mg 24 hr 8-02 tablet by ity of tablet 00:00: mouth 00 daily. Medical Branch raloxifene 0 Yes 60mg Take 1 Unive rs 60 mg 8-02 tablet by ity of tablet 00:00: mouth [place] 00 daily. Medical Branch oxybutynin 0 Yes [id number] 15mg Take 1 Univers 15 mg 24 hr 8-02 tablet by ity of tablet 00:00: mouth [place] 00 daily. Medical Branch raloxifene 0 Yes 60mg Take 1 Unive rs 60 mg 8-02 tablet by ity of tablet 00:00: mouth [place] 00 daily. Medical Branch CELECOXIB 2020- No [id number] TAKE 1 Univers 200 mg 7 11-30 CAPSULE BY ity of capsule 00:00: 00:00 MOUTH [place] 00 :00 EVERY DAY Medical Branch PROGESTERON 2020-0 Yes [id number] TAKE 1 Univers E 100 mg 5-24 CAPSULE BY ity o f capsule 00:00: MOUTH [place] 00 EVERY DAY Medical Branch PROGESTERON 2020-0 Yes [id number] TAKE 1 Univers E 100 mg 5-24 CAPSULE BY ity o f capsule 00:00: MOUTH [place] 00 EVERY DAY Medical Branch donepeziL 2020-0 Yes 10mg Take 1 Univer s 10 mg 3-12 tablet by ity of tablet 00:00: mouth at [place] 00 bedtime. Medical Branch traZODone 0 Yes Primary 50mg Take 1 Uni vers 50 mg 3-12 insomnia tablet by ity o f tablet 00:00: mouth at [place] 00 bedtime. Medical Branch ZOLPIDEM 5 Yes Insomnia TAKE 1 U nivers mg tablet 2-26 due to TABLET BY ity of 00:00: other MOUTH [place] 00 mental EVERY DAY Medical disorder AT BEDTIME Branc h NEEDED FOR INSOMNIA SERTraline Yes Depression, 50mg Take 0.5 Univers 100 mg 1-14 unspecified tablets by ity of tablet 00:00: [place] 00 type daily. [place] raloxifene Yes Osteoporosi 60mg Take 1 Univers [...] mouth [place] 00 daily. Medical Branch gabapentin 2016-08 Yes 300mg QD Take 300 Me thodi (NEURONTIN) 1-[address] 300 mg 00:00: mouth [facility] capsule 00 nightly. l Immunizations Ordered Filled Immunization Date Status Comments [facility] e Immunization Name Name Influenza Virus 2021-06-29 Completed Universit y of Vaccine,quad 00:00:00 [place] [facility] Im,preserve Free [place] 65+ Influenza Virus 2021-06-29 Completed Universit y of Vaccine,quad 00:00:00 [place] Med[facility] Im,preserve Free [place] 65+ Vital Signs Vital Name Observation Time Observation Value Comments Source Systolic blood 2021-06-29 19:50:00 108 mm[facility]Hg[facility] Diastolic blood 2021-06-29 19:50:00 67 mm[Hg] [facility] Heart rate 2021-06-29 19:50:00 61 /min [facility] Body temperature 2021-06-29 19:49:00 36.33 Jolnata [facility] Respiratory rate 2021-06-29 19:49:00 20 /min [facility] Body height 2021-06-29 19:49:00 162.6 cm [facility] Body weight 2021-06-29 19:49:00 55.974 kg [facility] BMI 2021-06-29 19:49:00 21.18 kg/m2 [facility] Oxygen saturation in 2021-06-29 19:49:00 95 /min r/a University Arterial blood by [facility] Pulse oximetry Branch Procedures Procedure Date / Time Performing Clinician Source Performed AUTHORIZATION FOR 2021-12-14 05:01:00 Doctor Unassigned, No [facility] OF [facility]I Name Medical Branch FLU 2021-06-29 19:52:19 Zaida [place] [facility] VACC([id number]),65+YR,0. Medical Branch 5 ML,IM,ADJUVANTED,QUAD(FL UAD) POCT HEMOGLOBIN A1C TEST 2021-06-29 00:00:00 Zaida [place] [facility] Plan of Care Planned Activity Planned Date Details Comments Source Future Scheduled 2022-07-19 65+ PNEUMOCOCCAL [facility]i [facility] Test 07:27:52 VACCINE (1 - PCV) Hospital [code = 65+ PNEUMOCOCCAL VACCINE (1 - PCV)] Future Scheduled 2022-07-19 INFLUENZA VACCINE Method ist Test 07:27:52 [code = INFLUENZA Hospital VACCINE] Future Scheduled 2022-07-19 COVID-[address] Test 07:27:52 (#1) [code = Hospital COVID-19 VACCINE (#1)] Future Scheduled 2022-07-19 SHINGLES VACCINES (1 Met hodist Test 07:27:52 of 2) [code = Hospital SHINGLES VACCINES (1 of 2)] Future Scheduled 2021-08-19 DTaP,Tdap,and Td Postponed from Unive rsity of Test 00:00:00 Vaccines (1 - Tdap) 12/30/1959 [place] Me dical [code = (Alternative Branch DTaP,Tdap,and Td Guidelines) Vaccines (1 - Tdap)] Future Scheduled 2021-08-19 Depression screening Uni versity of Test 00:00:00 (procedure) [code = [place] Me dical [id number]] Branch Future Scheduled 2021-08-19 Zoster Recombinant Postponed from Uni versity of Test 00:00:00 Vaccine (SHINGRIX) 12/30/1989 [place] Med ical (1 of 2) [code = (Insurance / Branch Zoster Recombinant Financial) Vaccine (SHINGRIX) (1 of 2)] Future Scheduled 2021-04-06 INFLUENZA VACCINE Univer sity of Test 00:00:00 (Season Ended) [code [place] M edical = INFLUENZA VACCINE Branch (Season Ended)] Future Scheduled 2004-12-30 Medicare Annual Universi ty of Test 00:00:00 Wellness Visit [facility] (procedure) [code = Branch [id number]] Future Scheduled 2004-12-30 Screening for University of Test 00:00:00 osteoporosis [place] [facility] (procedure) [code = Branch [id number]] Future Scheduled 2004-12-30 PNEUMOCOCCAL University of Test 00:00:00 VACCINES 65+ ([address] [facility] edical - PPSV23) [code = Branch PNEUMOCOCCAL VACCINES 65+ (1 of 1 - PPSV23)] Future Scheduled 1956 SARS-CoV-2 University of Test 00:00:00 (COVID-19) Vaccine [place] Med ical (1) [code = Branch SARS-CoV-2 (COVID-19) Vaccine (1)] Encounters Start End Encounter Admission Attending Care Care Encounter Source Date/Time Date/Time Type Type Clinicians Facility Department ID 2021-11-21 [id number] 08[facility]59[id number] 2021-12-14 2021-12-14 Orders Doctor SUKHJINDER 1.2.840.114 [id number] Univers 00:00:00 00:00:00 Only Unassigned, ANUSHA 350.1.13.10 ity of [place] [facility] 4.2.7.2.686 [place] [phone] [facility] ramos 009 Branch 2021-08-03 2021-08-03 Outpatient R [facility] [id number] Univers 13:00:00 13:00:00 ZAIDA ity of [facility] 2021-07-14 2021-07-14 Jack Marsh 1.2.840.114 [id number] Univers 00:00:00 00:00:00 Y PEDIATRIC 350.1.13.10 it[place] of [place] [id number] [place] [address] Branch [facility] 2021-07-07 2021-07-07 [facility] [id number] Univers 00:00:00 00:00:00 ZAIDA ity [facility] 2021-07-07 2021-07-07 Outpatient Jaciel VALDEZVINNIE [facility] [id number] Univers 00:00:00 00:00:00 ZAIDA ity [facility] 2021-07-06 2021-07-06 Patient LOVE Jacobs 1.2.840.114 [id number] Univers 00:00:00 00:00:00 Outreach Ruth L PEDIATRIC 350.1.13.10 [place] [id number] [address] 2021-07-05 2021-07-05 Outpatient JACK COHEN [facility] [id number] Univers 13:30:00 14:38:25 ity of [facility] 2021-07-05 2021-07-05 Office Jack Yin 1.2.840.114 [id number] Univers 13:08:52 14:38:25 Visit Y PEDIATRIC 350.1.13.10 ity [place] [id number] [address] 2021-07-05 2021-07-05 Outpatient JACK COHEN [facility] [id number] Univers 13:30:00 13:30:00 ity of [facility] 2021-07-01 2021-07-01 RefJack York 1.2.840.114 [id number] Univers 00:00:00 00:00:00 Y PEDIATRIC 350.1.13.10 [place] [id number] [place] [address] Branch [facility] 2021-06-29 2021-06-29 Office Vinnie IDCASANDRA 1.2.840.114 [id number] Univers 14:00:00 14:54:02 Visit Zaida PRIMARY 350.1.13.10 it y of [place] CARE 4.2.[place].2.686 [place] [id number] Nh dical 067 Branch 2021-06-29 2021-06-29 [facility] [id number] Univers 14:00:00 14:54:02 ZAIDA ity [facility] 2021-06-29 2021-06-29 Outpatient R [facility] [id number] Univers 14:00:00 14:00:00 ZAIDA [facility] 2021-06-25 2021-06-25 Emergency X [facility] ERT [id number] Univers 16:26:00 19:44:00 NATANAEL [facility] 2021-06-25 2021-06-25 Emergency [facility] [id number] Univers 16:26:00 19:44:00 Natanael S ANALY 350.1.13.10 i ty of [place]7.2.[place] [id number] [facility] 084 Branch 2021-06-23 2021-06-23 Outpatient R JACK YIN [facility] [id number] Univers 11:30:00 12:02:28 ity of [facility] 2021-06-23 2021-06-23 Office Jack Yin 1.2.840.114 [id number] Univers 10:47:17 12:02:28 Visit Y PEDIATRIC 350.1.13.10 [place] [id number] [facility] PRIMARY 314 Branch CARE CLINIC 2021-06-23 2021-06-23 Outpatient R JACK YIN [facility] [id number] Univers 11:30:00 11:30:00 ity of [facility] 2021-06-22 2021-06-22 Orders Doctor SUKHJINDER 1.2.840.114 [id number] Univers 00:00:00 00:00:00 Only Unassigned, ANUSHA 350.1.13.10 ity of [place] [facility] 4.2.7.2.686 [place] [id number] [facility] 009 Branch 2021-06-21 2021-06-21 Transition PIPER Lopez 1.2.840.114 [id number] Univers 00:00:00 00:00:00 of Care Daniella Bobbi TAN 350.1.13.10 i ty of [place] [id number] [facility] 403 Branch 2021-06-18 2021-06-19 [facility] [id number] Univers 13:50:00 16:33:00 LIA rivera [facility] 2021-06-18 2021-06-19 Emergency Miriam Barrera [facility] 1.2.840 .114 [id number] Univers 13:50:00 16:33:00 Lia Lockett 350.1.13.10 ity of [place].2.[place] [id number] [facility] 080 Branch 2021-06-18 2021-06-19 Outpatient Jimena LOCKETT [facility] [id number] Univers 13:50:00 16:33:00 LIA rivera [facility] 2021-06-18 2021-06-18 Orders Doctor SLAUGHTER 1.2.840.114 [id number] Univers 00:00:00 00:00:00 Only Unassigned, ANUSHA 350.1.13.10 ity of [place] [facility] 4.2.7.2.686 [place] [id number] [facility] 009 Branch 2021-05-24 2021-05-24 Orders Doctor SLAUGHTER 1.2.840.114 [id number] Univers 00:00:00 00:00:00 Only Unassigned, ANUSHA 350.1.13.10 ity of [place] [facility] 4.2.7.2.686 [place] [id number] [facility] 009 Branch 2021-05-19 2021-05-19 Telephone Jack Yni 1.2.840.114 [id number] Univers 00:00:00 00:00:00 Y Pediatric 350.1.13.10 ity [place] [id number] [facility] Primary 314 Branch Care Clinic 2021-04-15 2021-04-15 Outpatient LEONARD HUDDLESTON [facility] [id number] Univers 14:40:00 14:40:00 LEONARD LADD ity of [facility] 2021-04-15 2021-04-15 Office Julee [facility] 1.2.840.114 [id number] Univers 13:59:06 14:37:22 Visit [facility] 350.1.13.10 ity of [place] 4.2.7.2.686 [place] Marvin?Blea [phone] [place] 9[address] [facility] Office [facility] 2021-04-13 2021-04-13 Orders Doctor SUKHJINDER 1.2.840.114 [id number] Univers 00:00:00 00:00:00 Only Unassigned, ANUSHA 350.1.13.10 ity of [place] [facility] 4.2.7.2.686 [place] [id number] [address] 2021-04-07 2021-04-07 Telephone Jack Yin 1.2.840.114 [id number] Univers 00:00:00 00:00:00 Y Pediatric 350.1.13.10 ity [place] [id number] [address] 2021-04-06 2021-04-06 Telephone Jack Yin 1.2.840.114 [id number] Univers 00:00:00 00:00:00 Y Pediatric 350.1.13.10 ity [place] [id number] [address] 2021-04-06 2021-04-06 Telephone Jack Yin 1.2.840.114 [id number] Univers 00:00:00 00:00:00 Y Pediatric 350.1.13.10 ity of [place] [id number] [address] 2021-03-23 2021-03-23 Orders Doctor SUKHJINDER 1.2.840.114 [id number] Univers 00:00:00 00:00:00 Only Unassigned, ANUSHA 350.1.13.10 ity [facility] 4.2.7.2.686 [place] [id number] [address] 2021-03-07 2021-03-07 Outpatient JACK COHEN [facility] [id number] [facility] [place] [facility] 13:15:00 [facility] 2020-10-15 2020-10-15 Outpatient LEONARD HUDDLESTON [facility] [id number] [facility] [place] [facility] 13:40:00 13:40:00 LEONARD LADD [facility] 2020-08-19 2020-08-19 Outpatient JACK COHEN [facility] [id number] [facility] [place] [facility] 13:00:00 13:00:00 [facility] Results Test Description Test Time Test Comments Results Result Comments Source POCT HEMOGLOBIN A1C TEST 2021-06-29 20:25:00 Test Item Value Reference Range Interpretation Comme nts POCT HBA1C (test code = 4548-4) 5.3 % 4-6 [facility]
--- NOTE | 2022-09-07 13:12 | ER ---
Nurse's Notes [facility] Name: Cherelle Mccarthy Age: 81 yrs Sex: Female : 1940 Arrival Date: 09/07/2022 Time: 13:08 Bed 3 Private MD: Diagnosis: Cardiac arrest, cause unspecified Presentation: 09/07 13:00 Chief complaint: EMS states: last seen normal between 2568-5148, asystole upon arrival. kc6 katty machine in place. 5 rounds of epi given, patient remained in asystole. 13:00 Care prior to arrival: Oral airway placed, CPR via thumper Medication(s) given: kc6 epinephrine x5 IV initiated. IO to the left tibia. Compressions began prior to arrival. 13:00 Method Of Arrival: EMS: [facility] kc6 13:00 Acuity: JERRY 1 kc6 13:00 Coronavirus screen: status unknown. kc6 13:00 Ebola Screen: Unable to complete the Ebola screening because: Patient is unresponsive. kc6 Initial Sepsis Screen: Does the patient meet any 2 criteria? No. Patient's initial sepsis screen is negative. Does the patient have a suspected source of infection? No. Patient's initial sepsis screen is negative. Risk Assessment: Do you want to hurt yourself or someone else? Patient reports no desire to harm self or others. Onset of symptoms was September 07, 2022. Triage Assessment: 13:00 General: Appears distressed, Behavior is unresponsive. Pain: Unable to use pain scale. kc6 Patient is unresponsive. Historical: - Allergies: 13:14 No Known Allergies; kc6 - PMHx: 13:14 Dementia; Osteoporosis; varicose veins; kc6 - Immunization history:: Adult Immunizations unknown. - Social history:: Smoking status: unknown. Screenin:00 Abuse screen: Denies threats or abuse. Denies injuries from another. Nutritional kc6 screening: No deficits noted. Tuberculosis screening: No symptoms or risk factors identified. 15:05 [facility] ED Fall Risk Assessment (Adult) Score/Fall Risk Level 0 - 2 = Low Risk. kc6 Assessment: 13:00 CPR assessment: unresponsive, no respiratory effort, Ambu ventilation, pulses absent w/ kc6 compressions. Cardiac rhythm is asystole. General: Behavior is unresponsive. 13:03 Reassessment: pads on, CPR began. kc6 13:04 Reassessment: pulse check, no pulses with compressions. cardiac rhythm is asystole. kc6 time of called by Dr. Larson at 1304. 15:05 Reassessment: detectives and supervisor uranium processing at bedside. kc6 17:00 Reassessment: [facility] at bedside for client. kc6 Vital Signs: 13:00 Temp 99.4(R); kc6 13:00 time of 1304, no vitals obtained kc6 ED Course: 13:00 Patient has correct armband on for positive identification. kc6 13:00 Maintain EMS IV. Dressing intact. Good blood return noted. Site clean \T\ dry. Gauge \T\ fabio 6 site: IO to the left tibia. 13:00 Arm band placed on. kc6 13:08 Patient arrived in ED. ss 13:08 Ingris Jefferson, GISELE is Primary Nurse. kc6 13:10 Yash Larson DO is Attending Physician. ms3 13:11 Triage completed. kc6 13:12 Yash Larson DO is Pronouncing Provider. ms3 15:06 Patient did not have IV access during this emergency room visit. kc6 15:06 No provider procedures requiring assistance completed. kc6 Administered Medications: No medications were administered Medication: 15:05 VIS not applicable for this client. kc6 Outcome: 13:04 Outcome Patient kc6 13:04 Condition: kc6 17:30 Patient : Time of 13:04 Pronounced by Yash Larson DO Body to home.kc6 17:30 Instructed on discharge instructions. 17:31 Patient left the ED. kc6 Signatures: Irina Haq RN RN Yash Larson DO DO ms3 Ingris Jefferosn RN RN kc6 Corrections: (The following items were deleted from the chart) 13:13 13:00 time of 1304, no vitals obtained; kc6 kc6
--- NOTE | 2022-09-07 17:32 | EDPHYS ---
Physician Documentation [facility] Name: Cherelle Mccarthy Age: 81 yrs Sex: Female : 1940 Arrival Date: 09/07/2022 Time: 13:08 Bed 3 Private MD: ED Physician aYsh Larson HPI: 09/07 13:12 This 81 yrs old Female presents to ER via EMS with complaints of CPR. ms3 13:12 81-year-old female with unknown past medical history presents via [facility]. EMS ms3 states patient was last seen normal at 8 or 9 PM yesterday. At 8 AM this morning patient's daughter checked on patient and she was believed to be sleeping. EMS states daughter then found patient unresponsive prior to calling 911. 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 Patient's initial rhythm for EMS was asystole. Patient received 5 epinephrines in route to the hospital, left tibial IO was placed, and a Kwaku tube was placed.. Historical: - Allergies: 13:14 No Known Allergies; kc6 - PMHx: 13:14 Dementia; Osteoporosis; varicose veins; kc6 - Immunization history:: Adult Immunizations unknown. - Social history:: Smoking status: unknown. ROS: 13:12 Unable to obtain ROS due to Unresponsive- CPR in progress. ms3 Exam: 13:12 Head/Face: Normocephalic, atraumatic. ms3 13:12 ENT: Nares patent. No nasal discharge, no septal abnormalities noted. Tympanic membranes are normal and external auditory canals are clear. Oropharynx with no redness, swelling, or masses, exudates, or evidence of obstruction, uvula midline. Mucous membranes moist. Neck: Trachea midline, no cervical lymphadenopathy. Supple, full range of motion without nuchal rigidity, or vertebral point tenderness. No Meningismus. Back: No spinal tenderness. No costovertebral tenderness. Full range of motion. Skin: Warm, dry with normal turgor. Normal color with no rashes, no lesions, and no evidence of cellulitis. 13:12 Eyes: Pupils: are fixed and dilated. 13:12 Cardiovascular: Rate: actual rate is 0 bpm, Rhythm: asystole, Pulses: not palpable. ms3 Vital Signs: 13:00 Temp 99.4(R); kc6 13:00 time of 1304, no vitals obtained kc6 MDM: 13:10 Patient medically screened. ms3 13:12 Differential diagnosis: cardiac arrest. Data reviewed: vital signs. Historians other ms3 than the Patient: EMS: [facility]. ED course: Patient asystole with CPR in progress on arrival to the emergency department. Time of 1304. Patient's daughter, son-in-law, grandson's notified of in treatment room.. Administered Medications: No medications were administered Disposition Summary: 09/07/22 13:12 Patient Location: [facility] ms3 Pronouncing Physician: Yash Larson ms3 Time of : 13:04 09/07/2022 ms3 Diagnosis - Cardiac arrest, cause unspecified ms3 Signatures: Yash Larson DO DO ms3 Ingris Jefferson, RN RN kc6
== END 2022-09-07 17:31 ==
LOC: ER 13:03
DX: I46.9 Cardiac arrest, cause unspecified (principal); F03.90 Unspecified dementia, unspecified severity, without behavioral disturbance, psychotic disturbance, mood disturbance, and anxiety
CPT/HCPCS: 92950; 99285